=== PATIENT | female | born 1975 | race Asian ===

== ENCOUNTER 2018-01-12 17:26 | Emergency (ER) | payer SELFPAY ==
[~2018-01-12] VITALS: Ht 170.2 cm; Wt 104.5 kg
[2018-01-12 17:28] VITALS: BP 148/97
== END 2018-01-12 18:33 | disposition home or self-care (01) ==
LOC: EMS 17:28
DX: S50.861A Insect bite (nonvenomous) of right forearm, initial encounter (principal); L08.9 Local infection of the skin and subcutaneous tissue, unspecified; R03.0 Elevated blood-pressure reading, without diagnosis of hypertension; W57.XXXA Bitten or stung by nonvenomous insect and other nonvenomous arthropods, initial encounter; Y93.89 Activity, other specified; Y92.89 Other specified places as the place of occurrence of the external cause; Y99.8 Other external cause status
CPT/HCPCS: 99283